=== PATIENT | male | born 1975 | race Caucasian/White ===

== ENCOUNTER 2016-12-23 21:04 | Emergency (ER) | payer MEDICAID ==
--- NOTE | 2016-12-23 21:13 | ED Physician Chart ---
Chief Complaint/HPI - Patient Information Date Seen:: 12/23/16 Time Seen:: 21:08 Chief Complaint:: alcohol intoxication History of Present Illness:: 41-year-old male brought in by EMS after police were called for loitering and public with acute, moderate, constant, alcohol intoxication that was noted about 30 minutes prior to arrival. Has associated marijuana use as well. Denies nausea, vomiting, pain, numbness, tingling, abdominal pain, chest pain, palpitations, headache, acute loss of consciousness, acute vision changes, syncope, gross hematuria, diarrhea. Historian:: Patient, EMS Review:: Nurse's Note Reviewed Review of Systems - Review of Systems Other: Complete system review otherwise unremarkable except as noted in history of present illness. Past Medical History - Past Medical History Past Medical History: No significant medical hx Family History: None Social History: Non Smoker, Alcohol, Illicit Drug Use Surgical History: None Psychiatricy History: None Medication: None Family Medical History - Family Member Mother History Unknown: Yes Ethnicity: Non- Physical Exam - Physical Examination Other:: INITIAL VITAL SIGNS: Reviewed by me GENERAL: Alert and interactive. No acute distress HEAD: Head is normocephalic and atraumatic EYES: EOMI. PERRL. No scleral icterus. No conjunctival injection ENT: Moist mucous membranes. NECK: Supple. No masses. Full range of motion RESPIRATORY: No tachypnea. Clear breath sounds bilaterally. No wheezing, rales, or rhonchi CV: Regular rate and rhythm. No murmurs, rubs, or gallops ABDOMEN: Soft, non-distended, non-tender. No guarding. No rebound. No masses. EXTREMITIES: No deformity. No cyanosis. No edema. SKIN: Warm and dry. No obvious rashes. Small 0.5 cm abrasion to the left knee over the patella. NEUROLOGIC: Alert and oriented. Face is symmetric. Speech is normal. Moves all extremities equally. Motor and sensory distally intact. ED Septic Shock - . Is Septic Shock (SBP<90, OR Lactate>4 mmol\L) present?: No Reassessment (Disposition) - Reassessment Reassessment:: Patient brought in by EMS because police were called because he was drunk in public or loitering in public. Patient is alert and oriented 4. Has steady gait. Walking to and from restaurant without any need for assistance. The patient has been extremely cooperative. At this point we did call his father who eventually arrived to turkey picker his son. Recommended follow-up with primary care 1-2 days. Return to ER precautions were given. Both the patient and his father agreed and understood the plan. Blood pressure was noted to be elevated over 120/80. There were no signs of hypertension. Discussed the findings with the patient and recommended that the patient follow up with the primary care physician regarding the elevated blood pressure. Reassessment Condition:: Improved - Diagnosis Diagnosis:: Alcohol intoxication Elevated blood pressure without the diagnosis of hypertension - Aftercare/Follow up Instructions Aftercare/Follow-Up Instructions:: Counseled pt regarding lab results/diagnosis & need follow up, Refer to Discharge Instructions - Patient Disposition Discharge/Transfer:: Home Time:: 21:13 Condition at Disposition:: Improved ED Discharge Plan - Patient Disposition Admit/Discharge/Transfer: PT DISCHARGED HOME Condition at Disposition: Improved Instructions: Alcohol Intoxication
== END 2016-12-23 21:45 | disposition home or self-care (01) ==
LOC: ER 21:04
DX: F10.129 Alcohol abuse with intoxication, unspecified (principal); R03.0 Elevated blood-pressure reading, without diagnosis of hypertension; F12.90 Cannabis use, unspecified, uncomplicated
CPT/HCPCS: Z7502